=== PATIENT | female | born 1990 | race Caucasian/White ===

== ENCOUNTER 2019-07-06 13:02 | Emergency (ER) | payer MEDICAID ==
[~2019-07-06] VITALS: Ht 149.9 cm; Wt 68.0 kg
[2019-07-06 13:10] VITALS: BP_SYST 132
--- NOTE | 2019-07-06 13:13 | NUR ---
Patient to ER bed H1 to gown for evaluation. Side rails up.
--- NOTE | 2019-07-06 13:15 | NUR ---
Pt brought by self, A&Ox4, pt presents to ER with cough/ congestion x 5 days, pt has Hx of asthma, skin pink and warm, cap refill <3, VSS, respirations even and unlabored.
--- NOTE | 2019-07-06 13:45 | NUR ---
Dr Andres at bedside examining patient
[2019-07-06 14:20] VITALS: BP_SYST 128
--- NOTE | 2019-07-06 14:20 | NUR ---
Patient given written and verbal discharge instructions and verbalizes understanding. ER MD discussed with patient the results and treatment provided. Patient in stable condition. ID arm band removed. Rx of Prednisone and Azithromycin given. Patient educated on pain management and to follow up with PMD. Pain Scale 0/10 . Opportunity for questions provided and answered. Medication side effect fact sheet provided.
== END 2019-07-06 14:20 | disposition home or self-care (01) ==
LOC: SED 13:02
DX: J45.909 Unspecified asthma, uncomplicated (principal)
CPT/HCPCS: 99283

== ENCOUNTER 2020-03-01 10:55 | Emergency (ER) | payer MEDICAID ==
[~2020-03-01] VITALS: Ht 152.4 cm; Wt 68.0 kg
[2020-03-01 11:00] VITALS: BP_SYST 128
--- NOTE | 2020-03-01 11:03 | NUR ---
Patient to ER bed 7 to [facility] for evaluation. Side rails up. Report given to ONESIMO Chambers. Addendum: 03/01/20 at 1107 by [email or web address] Patient to ER bed 7 to [facility] for evaluation. Side rails up. Report given to ONESIMO St.
--- NOTE | 2020-03-01 11:14 | NUR ---
DR DUKES IN TO ASSESS
[2020-03-01] MEDS ORDERED: LIDOCAINE 1% 10 MG/ML, 20 ML MDV INJ ONE (11:15)
[2020-03-01] MEDS ORDERED: HYDROcodone/ACETAMIN 5-325 MG TAB (NORCO/ VICODIN) PO ONE (11:15)
--- NOTE | 2020-03-01 11:16 | NUR ---
pt calm, alert, c/o several dog bites, bleeding controlled. no distress, no facial or head injuries.
--- NOTE | 2020-03-01 12:22 | NUR ---
DRSG APPLIED TO WOUND SITES
[2020-03-01 12:23] VITALS: BP_SYST 113
--- NOTE | 2020-03-01 12:25 | NUR ---
Patient given written and verbal discharge instructions and verbalizes understanding. ER MD discussed with patient the results and treatment provided. Patient in stable condition. ID arm band removed. Rx of ABX given. Patient educated on pain management and to follow up with PMD. Pain Scale 1/10 Opportunity for questions provided and answered. Medication side effect fact sheet provided.
[2020-03-01] MEDS ORDERED: BACITRACIN 1 GM OINT TP ONE (12:26)
== END 2020-03-01 12:23 | disposition home or self-care (01) ==
LOC: SED 10:55
DX: S71.112A Laceration without foreign body, left thigh, initial encounter (principal); J45.909 Unspecified asthma, uncomplicated; W54.0XXA Bitten by dog, initial encounter; Y93.89 Activity, other specified; Y92.89 Other specified places as the place of occurrence of the external cause; Y99.9 Unspecified external cause status
CPT/HCPCS: 12002; 99283; J2001; J7042

== ENCOUNTER 2020-08-22 19:45 | Emergency (ER) | payer MEDICAID ==
[~2020-08-22] VITALS: Ht 152.4 cm; Wt 63.5 kg
[2020-08-22 20:00] VITALS: BP_SYST 141
[2020-08-22] MEDS ORDERED: LIDOCAINE 1%, 20 ML MDV 20 ML ONE (20:30)
[2020-08-22] MEDS ORDERED: LIDOCAINE 1% 10 MG/ML, 20 ML MDV INJ ONE (20:30)
[2020-08-22 21:46] VITALS: BP_SYST 136
[2020-08-22] MEDS ORDERED: BACITRACIN 1 GM OINT TP ONE (21:49)
== END 2020-08-22 21:44 | disposition home or self-care (01) ==
LOC: SED 19:45
DX: L60.0 Ingrowing nail (principal); L03.031 Cellulitis of right toe; J45.909 Unspecified asthma, uncomplicated
CPT/HCPCS: 11730; 99284; J2001

== ENCOUNTER 2020-11-20 16:33 | Emergency (ER) | payer MEDICAID ==
[~2020-11-20] VITALS: Ht 152.4 cm; Wt 63.5 kg
[2020-11-20 16:33] VITALS: BP_SYST 135
[2020-11-20] MEDS ORDERED: IBUP-1969 PO (17:29)
[2020-11-20] MEDS ORDERED: MED4 PO (17:29)
[2020-11-20] MEDS ORDERED: METH-634 PO (17:29)
[2020-11-20 17:37] VITALS: BP_SYST 135
== END 2020-11-20 17:37 | disposition home or self-care (01) ==
LOC: SED 16:33
DX: M54.12 Radiculopathy, cervical region (principal); J45.909 Unspecified asthma, uncomplicated; Z79.899 Other long term (current) drug therapy
CPT/HCPCS: 99283

== ENCOUNTER 2021-05-27 21:43 | Emergency (ER) | payer MEDICAID, SELFPAY ==
[~2021-05-27] VITALS: Ht 152.4 cm; Wt 68.0 kg
[~2021-05-27 21:43] MED LIST: IBUP-1969 PO; MED4 PO; METH-634 PO
[2021-05-27 22:21] VITALS: BP_SYST 111
== END 2021-05-27 23:18 | disposition left against medical advice (07) ==
LOC: SED 21:43
DX: R50.9 Fever, unspecified (principal); Z53.21 Procedure and treatment not carried out due to patient leaving prior to being seen by health care provider

== ENCOUNTER 2021-06-01 19:14 | Emergency (ER) | payer MEDICAID, SELFPAY ==
[~2021-06-01] VITALS: Ht 152.4 cm; Wt 68.0 kg
[2021-06-01 19:31] VITALS: BP_SYST 105
--- NOTE | 2021-06-01 19:37 | NUR ---
Patient triaged and placed in TENT. VSS and patient appears in no acute distress at this time. Accompanied by SELF, awaiting available bed, and MD notified of need for MSE.
--- NOTE | 2021-06-01 19:39 | NUR ---
PT WALKED IN C/O FEVER, ROSEN, COUGH, SOB SINCE X 8DAYS. +NEW ONSET LEFT EAR PAIN. +POOR PO INTAKE, N/V. TOOK 400 MG MOTRIN @1700. AFEBRILE IN TRIAGE
[2021-06-01] MEDS ORDERED: KETOROLAC TROMETHAMINE 15 MG VIAL IVP ONE (19:45)
[2021-06-01] MEDS ORDERED: METOCLOPRAMIDE HCL 10 MG/2 ML VIAL IVP ONE (19:45)
[2021-06-01] MEDS ORDERED: DIPHENHYDRAMINE INJ 50 MG/ML VIAL IM ONE (19:45)
--- NOTE | 2021-06-01 20:05 | NUR ---
Patient to ER bed 8 to gown for evaluation. Side rails up. Report given to self.
--- NOTE | 2021-06-01 20:10 | NUR ---
Assumed care of patient from tent to bed 8. Introduced self to patient, positioned for comfort. bed to low position sr up, continue to monitor. Patient resting quietly. No acute distress noted. Vital signs within normal range.
[2021-06-01 20:19] LABS: BASOPHILS # (AUTO) 0.1 K/uL (0.0-0.2); BASOPHILS % (AUTO) 0.5 % (0.0-2.0); EOSINOPHILS % (AUTO) 0.1 % (0.0-4.0); HEMOGLOBIN 13.6 g/dL (12.0-16.0); LYMPHOCYTES # (AUTO) 2.3 K/uL (1.0-5.5); LYMPHOCYTES % (AUTO) 18.5 % (20.5-51.5); MEAN CORPUSCULAR HEMOGLOBIN 30 pg (27-31); MEAN CORPUSCULAR HGB CONC 35 % (32-36); MEAN CORPUSCULAR VOLUME 87 fL (79.0-98.0); MONOCYTES # (AUTO) 0.5 K/uL (0.0-1.0); MONOCYTES % (AUTO) 4.1 % (1.7-9.3); NEUTROPHILS # (AUTO) 9.5 K/uL (1.8-7.7); NEUTROPHILS % (AUTO) 76.8 % (40.0-70.0); PLATELET COUNT (AUTO) 192 K/uL (130-430); RED CELL DISTRIBUTION WIDTH 13.8 % (9.0-15.0); WHITE BLOOD COUNT (AUTO) 12.4 K/uL (4.8-10.8)
--- NOTE | 2021-06-01 20:20 | NUR ---
# 20 gauge angiocath placed to RAC. Use of asceptic technique. Opsite placed over site. Blood return noted. Flushed with 10 cc of normal saline. No evidence of infiltration noted. Patient tolerated well.
[2021-06-01] MEDS ORDERED: METOCLOPRAMIDE HCL 10 MG/2 ML VIAL ONE (20:23)
--- NOTE | 2021-06-01 20:25 | NUR ---
Medicated w/ toradol, benadryl, and reglan per MD orders. IVF infusing with no s/s of infiltration at this time. Will cont to monitor and observe for any adverse reaction. Bed to low position sr up, continue to monitor.
--- NOTE | 2021-06-01 20:53 | NUR ---
Patient resting quietly. No acute distress noted. Vital signs within normal range. pain 0/10
[2021-06-01 21:40] LABS: CALCIUM 8.4 mg/dL (8.4-11.0); CREATININE 0.79 mg/dL (0.55-1.30)
[2021-06-01 21:46] LABS: POTASSIUM 2.9 mmol/L (3.5-5.1)
[2021-06-01 21:57] LABS: TOTAL BILIRUBIN 0.3 mg/dL (0.0-1.0)
[2021-06-01] MEDS ORDERED: NACL 0.9% 1,000 ML IV ONE (22:00)
[2021-06-01] MEDS ORDERED: POTASSIUM CHLORIDE 20 MEQ/PKT PACKET PO ONE (22:00)
--- NOTE | 2021-06-01 22:04 | NUR ---
Medicated w/ 40meq/kcl for a k level of 2.9 per MD orders. Will cont to monitor and observe for any adverse reaction. bed to low position sr up, continue to monitor.
[2021-06-01] MEDS ORDERED: ONDA-8 TL (22:18)
[2021-06-01 22:19] LABS: BILIRUBIN,URINE NEGATIVE (NEGATIVE); BLOOD, URINE NEGATIVE (NEGATIVE); COLOR,URINE YELLOW (YELLOW); GLUCOSE,URINE NEGATIVE (NEGATIVE); KETONES,URINE NEGATIVE (NEGATIVE); LEUKOCYTE ESTERASE ,URINE NEGATIVE (NEGATIVE); NITRITE, URINE NEGATIVE (NEGATIVE); PROTEIN URINE 1+ (NEGATIVE)
[2021-06-01 22:20] LABS: CLARITY/URINE HAZY (CLEAR)
[2021-06-01 22:30] VITALS: BP_SYST 96
[2021-06-01 22:37] LABS: BACTERIA,URINE FEW /HPF (None Seen); MUCUS,URINE 2+ /LPF (None Seen); RBC,URINE 0-3 /HPF (0-3); WBC,URINE 0-3 /HPF (0-3)
--- NOTE | 2021-06-01 22:38 | NUR ---
Patient given written and verbal discharge instructions and verbalizes understanding. ER MD discussed with patient the results and treatment provided. Patient in stable condition. ID arm band removed. IV catheter removed intact and dressing applied, no active bleeding. Rx of zofran given. Patient educated on pain management and to follow up with PMD. Pain Scale 0. Opportunity for questions provided and answered. Medication side effect fact sheet provided.
== END 2021-06-01 22:38 | disposition home or self-care (01) ==
LOC: SED 19:14
DX: E87.6 Hypokalemia (principal); E86.0 Dehydration; R11.2 Nausea with vomiting, unspecified; B34.9 Viral infection, unspecified; J45.909 Unspecified asthma, uncomplicated; Z79.899 Other long term (current) drug therapy; Z20.822 Contact with and (suspected) exposure to COVID-19
CPT/HCPCS: 36415; 71045; 80053; 81000; 81025; 83690; 85025; 86710; 87426; 96361; 96374; 96375; 99284; J1200; J1885; J2765; J7030

== ENCOUNTER 2022-02-15 01:24 | Emergency (ER) | payer MEDICAID ==
[~2022-02-15] VITALS: Ht 172.7 cm; Wt 65.8 kg
[~2022-02-15 01:24] MED LIST changes: +ONDA-8 TL
[2022-02-15 01:48] VITALS: BP_SYST 118
--- NOTE | 2022-02-15 01:50 | NUR ---
PT PLACED IN WAITING ROOM. WAITING FOR BED OPENING.
--- NOTE | 2022-02-15 01:50 | NUR ---
PT FROM HOME WITH C/O EARACHE FOR 1 WK STARTED IN LEFT EAR AND NOW INTO RIGHT EAR. PAIN RATED 7/10. PT REPORTS ROSEN THAT STARTED YESTERDAY, PT REPORTS TAKING IBUPROFEN AT 2200. VSS.
--- NOTE | 2022-02-15 02:00 | NUR ---
Dr. Ang with patient in triage room for evaluation.
[2022-02-15] MEDS ORDERED: AMOX500C2 PO (02:26)
[2022-02-15 02:40] VITALS: BP_SYST 119
--- NOTE | 2022-02-15 02:40 | NUR ---
Patient given written and verbal discharge instructions and verbalizes understanding. ER MD discussed with patient the care provided. Patient in stable condition. ID arm band removed. Rx of Amoxicillin given. Patient educated on pain management and to follow up with PMD. Pain Scale 7/10. Opportunity for questions provided and answered.
== END 2022-02-15 02:40 | disposition home or self-care (01) ==
LOC: SED 01:24
DX: H66.92 Otitis media, unspecified, left ear (principal); H92.02 Otalgia, left ear; R51.9 Headache, unspecified; Z79.899 Other long term (current) drug therapy
CPT/HCPCS: 99283

== ENCOUNTER 2022-05-23 18:56 | Emergency (ER) | payer MEDICAID ==
[~2022-05-23] VITALS: Ht 167.6 cm; Wt 63.5 kg
[~2022-05-23 18:56] MED LIST changes: +AMOX500C2 PO
[2022-05-23 19:08] VITALS: BP_SYST 124
[2022-05-23] MEDS ORDERED: ONDANSETRON HCL 4 MG/2 ML VIAL IVP ONE (19:45)
[2022-05-23] MEDS ORDERED: NACL 0.9% 1,000 ML IV ONE (19:45)
[2022-05-23] MEDS ORDERED: KETOROLAC TROMETHAMINE 30 MG VIAL IVP ONE (19:45)
[2022-05-23 20:33] LABS: BASOPHILS % (AUTO) 0.3 % (0.0-2.0); HEMATOCRIT 41.4 % (36-48); HEMOGLOBIN 14.3 g/dL (12.0-16.0); LYMPHOCYTES # (AUTO) 0.2 K/uL (1.0-5.5); LYMPHOCYTES % (AUTO) 2.8 % (20.5-51.5); MEAN CORPUSCULAR HEMOGLOBIN 30 pg (27-31); MEAN CORPUSCULAR HGB CONC 35 % (32-36); MEAN CORPUSCULAR VOLUME 87 fL (79.0-98.0); MONOCYTES # (AUTO) 0.9 K/uL (0.0-1.0); NEUTROPHILS # (AUTO) 7.2 K/uL (1.8-7.7); NEUTROPHILS % (AUTO) 85.9 % (40.0-70.0); PLATELET COUNT (AUTO) 257 K/uL (130-430); RED BLOOD CELL COUNT(AUTO) 4.76 MIL/uL (4.2-6.2); RED CELL DISTRIBUTION WIDTH 13.4 % (9.0-15.0); WHITE BLOOD COUNT (AUTO) 8.4 K/uL (4.8-10.8)
[2022-05-23 20:38] LABS: CALCIUM 8.8 mg/dL (8.4-11.0); CREATININE 0.98 mg/dL (0.55-1.30)
[2022-05-23 20:42] LABS: ALBUMIN 4.2 g/dL (3.4-4.8); TOTAL BILIRUBIN 0.4 mg/dL (0.0-1.0)
[2022-05-23] MEDS ORDERED: OSEL75CA PO (22:06)
[2022-05-23] MEDS ORDERED: ONDA-8 TL (22:07)
[2022-05-23] MEDS ORDERED: IBUP-1969 PO (22:07)
[2022-05-23] MEDS ORDERED: PHEDM120 PO (22:08)
[2022-05-23] MEDS ORDERED: ONDANSETRON HCL 4 MG/2 ML VIAL ONE (22:27)
[2022-05-24 05:41] VITALS: BP_SYST 136
== END 2022-05-23 22:42 | disposition home or self-care (01) ==
LOC: SED 18:56
DX: J10.1 Influenza due to other identified influenza virus with other respiratory manifestations (principal); R05.9 Cough, unspecified; R11.2 Nausea with vomiting, unspecified; R50.9 Fever, unspecified; J45.909 Unspecified asthma, uncomplicated; F17.200 Nicotine dependence, unspecified, uncomplicated; F12.90 Cannabis use, unspecified, uncomplicated; Z79.899 Other long term (current) drug therapy; Z20.822 Contact with and (suspected) exposure to COVID-19
CPT/HCPCS: 99284; 96374; 71045; 96361; 96375; 87426; 80053; 83690; 85025; 36415; 81025; 87804 ×2; J2405; J7030

== ENCOUNTER 2023-01-16 08:51 | Emergency (ER) | payer MEDICAID ==
[~2023-01-16] VITALS: Ht 149.9 cm; Wt 70.3 kg
[~2023-01-16 08:51] MED LIST changes: +OSEL75CA PO; +PHEDM120 PO
[2023-01-16 09:00] VITALS: BP_SYST 107; PULSE 80; RESP 18; TEMP 98; O2SAT 99
[2023-01-16 09:49] LABS: BILIRUBIN,URINE NEGATIVE (NEGATIVE); BLOOD, URINE NEGATIVE (NEGATIVE); CLARITY/URINE CLEAR (CLEAR); COLOR,URINE YELLOW (YELLOW); GLUCOSE,URINE NEGATIVE (NEGATIVE); KETONES,URINE NEGATIVE (NEGATIVE); LEUKOCYTE ESTERASE ,URINE NEGATIVE (NEGATIVE); NITRITE, URINE NEGATIVE (NEGATIVE); PROTEIN URINE NEGATIVE (NEGATIVE); UROBILINOGEN,URINE 0.2 (0.2-1.0)
[2023-01-16 10:02] LABS: ANION GAP 9 (5-15); CALCIUM 8.3 mg/dL (8.4-11.0); CARBON DIOXIDE 25 mmol/L (23-29); CHLORIDE 103 mmol/L (98-107); CREATININE 0.66 mg/dL (0.55-1.30); GFR AFRICAN AMERICAN 134 mL/min (>90); GLUCOSE 91 mg/dL (74-106); POTASSIUM 3.6 mmol/L (3.5-5.1); SODIUM SERUM 137 mmol/L (136-145); UREA NITROGEN, BLOOD 4 mg/dL (8-21)
[2023-01-16 10:06] LABS: PROTHROMBIN TIME 10.1 SECS (9.5-12.5)
[2023-01-16 10:27] LABS: ALANINE AMINOTRANSFERASE 12 U/L (12-78); ALBUMIN 3.3 g/dL (3.4-4.8); AMYLASE 55 U/L (0-100); ASPARTATE AMINOTRANSFERASE 11 U/L (10-37); LACTATE DEHYDROGENASE 140 U/L (81-234); LIPASE 40 U/L (73-393); TOTAL BILIRUBIN 0.3 mg/dL (0.0-1.0); TOTAL PROTEIN, SERUM 7.2 g/dL (6.4-8.3)
[2023-01-16 10:28] LABS: GFR NON AFRICAN-AMERICAN 111 mL/min (>90); HCG,QUANTITATIVE 56272 mIU/ML (0-6)
[2023-01-16 10:36] LABS: ACETONE, SERUM NEGATIVE (NEGATIVE)
[2023-01-16 10:47] LABS: BASOPHILS % (AUTO) 0.3 % (0.0-2.0); EOSINOPHILS # (AUTO) 0.2 K/uL (0.0-0.4); EOSINOPHILS % (AUTO) 2.1 % (0.0-4.0); HEMATOCRIT 37.1 % (36-48); HEMOGLOBIN 12.1 g/dL (12.0-16.0); LYMPHOCYTES # (AUTO) 1.9 K/uL (1.0-5.5); LYMPHOCYTES % (AUTO) 20.4 % (20.5-51.5); MEAN CORPUSCULAR HEMOGLOBIN 27 pg (27-31); MEAN CORPUSCULAR HGB CONC 33 % (32-36); MEAN CORPUSCULAR VOLUME 83 fL (79.0-98.0); MONOCYTES # (AUTO) 0.6 K/uL (0.0-1.0); MONOCYTES % (AUTO) 6.8 % (1.7-9.3); NEUTROPHILS # (AUTO) 6.7 K/uL (1.8-7.7); NEUTROPHILS % (AUTO) 70.4 % (40.0-70.0); PLATELET COUNT (AUTO) 297 K/uL (130-430); RED BLOOD CELL COUNT(AUTO) 4.45 MIL/uL (4.2-6.2); RED CELL DISTRIBUTION WIDTH 19.5 % (9.0-15.0); WHITE BLOOD COUNT (AUTO) 9.5 K/uL (4.8-10.8)
[2023-01-16] MEDS ORDERED: ONDA-8 TL (11:04)
== END 2023-01-16 11:40 | disposition home or self-care (01) ==
LOC: SED 08:51
DX: O21.0 Mild hyperemesis gravidarum (principal); O26.891 Other specified pregnancy related conditions, first trimester; R10.2 Pelvic and perineal pain; Z3A.08 8 weeks gestation of pregnancy; J45.909 Unspecified asthma, uncomplicated; Z79.899 Other long term (current) drug therapy
CPT/HCPCS: 36415; 76802; 80053; 81003; 81025; 82009; 82150; 83605; 83615; 83690; 84702; 85025; 85610-TC; 85730-TC; 86900; 86901; 99284

== ENCOUNTER 2023-03-29 09:28 | Emergency (ER) | payer MEDICAID ==
[~2023-03-29] VITALS: Ht 165.1 cm; Wt 63.5 kg
[2023-03-29 09:47] VITALS: BP_SYST 142; PULSE 81; RESP 20; TEMP 98; O2SAT 98
[2023-03-29] MEDS ORDERED: HYDR-500 PO (10:03)
[2023-03-29] MEDS ORDERED: PRED50TA PO (10:03)
[2023-03-29 10:19] LABS: BILIRUBIN,URINE NEGATIVE (NEGATIVE); BLOOD, URINE NEGATIVE (NEGATIVE); COLOR,URINE YELLOW (YELLOW); GLUCOSE,URINE NEGATIVE (NEGATIVE); KETONES,URINE NEGATIVE (NEGATIVE); LEUKOCYTE ESTERASE ,URINE 2+ (NEGATIVE); NITRITE, URINE NEGATIVE (NEGATIVE); PROTEIN URINE 1+ (NEGATIVE); UROBILINOGEN,URINE 0.2 (0.2-1.0)
[2023-03-29 10:25] VITALS: BP_SYST 142; PULSE 68; RESP 14; TEMP 98; O2SAT 98
[2023-03-29 10:29] LABS: CLARITY/URINE SLIGHTLY HAZY (CLEAR)
[2023-03-29 10:44] LABS: BACTERIA,URINE FEW /HPF (None Seen); MUCUS,URINE 2+ /LPF (None Seen); YEAST,URINE Few /HPF (None Seen)
== END 2023-03-29 10:27 | disposition home or self-care (01) ==
LOC: SED 09:28
DX: L21.0 Seborrhea capitis (principal); R21 Rash and other nonspecific skin eruption; J45.909 Unspecified asthma, uncomplicated; Z79.899 Other long term (current) drug therapy
CPT/HCPCS: 36415; 81000; 87086; 87491; 99283